=== PATIENT | female | born 1990 | race Caucasian/White ===

== ENCOUNTER 2024-01-01 13:04 | Emergency (ER) | payer BC ==
[2024-01-01] MEDS ORDERED: LIDOCAINE 1% 20 ML MDV ONE (13:53)
--- NOTE | 2024-01-01 14:04 | RAD REPORT ---
EXAM DESCRIPTION: US - Extremity Nonvascular Limited - 01/01/2024 1:39 pm CLINICAL HISTORY: abscess/cyst left inner thigh COMPARISON: No comparisons TECHNIQUE: Real-time sonographic evaluation of the area of interest was performed. FINDINGS: Subcutaneous irregular fluid collection is seen in the area of interest measuring approxim ately 1.8 x 1.5 x 1.6 cm. This is most compatible with subcutaneous abscess.
--- NOTE | 2024-01-01 14:54 | ER ---
Nurse's Notes [facility] Name: Amaury Schmidt Age: 33 yrs Sex: Female : 1990 Arrival Date: 01/01/2024 Time: 13:04 Bed 14 Private MD: Diagnosis: Cutaneous abscess of left lower limb Presentation: 12/31 13:21 Method Of Arrival: Ambulatory ll1 13:36 Initial Sepsis Screen: Does the patient meet any 2 criteria? No. Patient's initial iw sepsis screen is negative. Does the patient have a suspected source of infection? No. Patient's initial sepsis screen is negative. Risk Assessment: Do you want to hurt yourself or someone else? Patient reports no desire to harm self or others. 13:36 Acuity: NONI 3 iw 13:36 Coronavirus screen: At this time, the client does not indicate any symptoms associated iw with coronavirus-19. Ebola Screen: No symptoms or risks identified at this time. 13:48 Chief complaint: Patient states: possible abscess to left inner thigh X 2 days. iw 13:48 Onset of symptoms was January 01, 2024. 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 - Infectious Disease History:: Denies. - Social history:: Smoking status: Patient denies any tobacco usage or history of. Screenin:46 [facility] ED Fall Risk Assessment (Adult) History of falling in the last 3 months, mb9 including since admission No falls in past 3 months (0 pts) Confusion or Disorientation No (0 pts) Intoxicated or Sedated No (0 pts) Impaired Gait No (0 pts) Mobility Assist Device Used No (0 pt) Altered Elimination No (0 pt) Score/Fall Risk Level 0 - 2 = Low Risk Oriented to surroundings, Maintained a safe environment, Educated pt \T\ family on fall prevention, incl call for assistance when getting out of bed. Abuse screen: Denies threats or abuse. Nutritional screening: No deficits noted. Tuberculosis screening: No symptoms or risk factors identified. Assessment: 13:57 General: Appears in no apparent distress. Behavior is calm, cooperative. Pain: mb9 Complains of pain in medial aspect of left thigh. Neuro: Level of Consciousness is awake, alert, obeys commands, Oriented to person, place, time, situation, Appropriate for age. Cardiovascular: Patient's skin is warm and dry. Respiratory: Airway is patent Respiratory effort is even, unlabored, Respiratory pattern is regular, symmetrical. GI: No signs and/or symptoms were reported involving the gastrointestinal system. : No signs and/or symptoms were reported regarding the genitourinary system. EENT: No signs and/or symptoms were reported regarding the EENT system. Derm: Abscess located on medial aspect of left thigh. Musculoskeletal: Range of motion: intact in all extremities. Vital Signs: 13:21 BP 177 / 74; Pulse 81; Resp 16 S; Temp 98.5(O); Pulse Ox 98% ; iw 15:05 BP 144 / 74; Pulse 74; Resp 16; Pulse Ox 100% on R/A; manjeet ED Course: 13:06 Patient arrived in ED. mr 13:06 Rocio Huff PA-C is PHCP. sb4 13:06 Edison Herbert DO is Attending Physician. sb4 13:20 Arm band placed on. ll1 13:36 Triage completed. iw 13:41 US Extrmty Nonvasular Limited In Process Unspecified. EDMS 13:46 Tracey Patel, MARCELINO is Primary Nurse. mb9 13:46 Bed in low position. Call light in reach. Side rails up X 1. Provided Education on: manjeet press call light if needing anything. Client placed on continuous cardiac and pulse oximetry monitoring. NIBP monitoring applied. 15:06 Assist provider with I \T\ D: of an abscess on left Set up I\T\D tray. Performed by Rocio Huff PA-C Dressing with Patient tolerated well. Patient did not have IV access during this emergency room visit. Administered Medications: 14:57 Drug: Lidocaine Infiltration (1 %) 5 ml 5 ml Infiltration once; to bedside Volume: 5 sb4 ml; Route: Infiltration; Medication: 13:47 VIS not applicable for this client. manjeet Outcome: 14:53 Discharge ordered by . sb4 15:06 Discharged to home ambulatory, with family, mb9 15:06 Condition: stable 15:06 Discharge instructions given to patient, Instructed on discharge instructions, follow up and referral plans. Demonstrated understanding of instructions, follow-up care, medications, Prescriptions given X 1, 15:06 Patient left the ED. mb9 Signatures: Dispatcher [employer] EDMI Mika Tracey, Doroteo Doroteo Marta Lantigua, RN RN Benito Guerrero RN RN ll1 Rocio Huff PA-C PATracey Gray, RN RN mb9 Corrections: (The following items were deleted from the chart) 13:35 13:21 BP 177 / 74; Pulse 81bpm; Pulse Ox 98%; ll1 el
--- NOTE | 2024-01-01 14:54 | EDPHYS ---
Physician Documentation [facility] Name: Amaury Schmidt Age: 33 yrs Sex: Female : 1990 Arrival Date: 01/01/2024 Time: 13:04 Bed 14 Private MD: ED Physician Edison Herbert HPI: 12/31 13:24 This 33 yrs old Female presents to ER via Ambulatory with complaints of Bump on leg. sb4 13:24 the patient presents with a swollen area of the medial aspect of left thigh. sb4 Description: The affected area is moderate sized, localized. Onset: The symptoms/episode began/occurred at an unknown time. and became worse 2 day(s) ago. Possible cause(s): unknown. Associated signs and symptoms: The patient has no apparent associated signs or symptoms. The patient has not experienced similar symptoms in the past. 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 - Infectious Disease History:: Denies. - Social history:: Smoking status: Patient denies any tobacco usage or history of. ROS: 13:24 Constitutional: Negative for fever, chills, and weight loss, sb4 13:24 Skin: Positive for swelling, of the medial aspect of left thigh, Exam: 13:24 Constitutional: This is a well developed, well nourished patient who is awake, alert, sb4 and in no acute distress. Head/Face: Normocephalic, atraumatic. Eyes: Extra-ocular motions intact. Periorbital areas with no swelling, redness, or edema. ENT: Mucous membranes moist. 13:24 Skin: abscess, that is moderate sized, of the medial aspect of left thigh, Vital Signs: 13:21 BP 177 / 74; Pulse 81; Resp 16 S; Temp 98.5(O); Pulse Ox 98% ; iw 15:05 BP 144 / 74; Pulse 74; Resp 16; Pulse Ox 100% on R/A; mb9 Procedures: 14:52 I \T\ D: Incision and drainage was performed for an abscess of the left medial aspect of sb4 left thigh Prepped with Betadine, Anesthetized with 2 ml's 1% Lidocaine. Incised with #11 blade. Drained moderate amount purulent fluid. bloody fluid. the patient tolerated the procedure well. MDM: 13:15 Patient medically screened. sb4 14:52 Data reviewed: vital signs, nurses notes, and as a result, I will discharge patient. sb4 Counseling: I had a detailed discussion with the patient and/or guardian regarding the historical points, exam findings, and any diagnostic results supporting the discharge/admit diagnosis, radiology results, to return to the emergency department if symptoms worsen or persist or if there are any questions or concerns that arise at home. 12/31 13:24 Order name: US Donatomtruss Nonvasular Limited sb4 Administered Medications: 14:57 Drug: Lidocaine Infiltration (1 %) 5 ml 5 ml Infiltration once; to bedside Volume: 5 sb4 ml; Route: Infiltration; Disposition: 13:59 I was immediately available on-site in the Emergency Department for consultation in the ms3 care of the patient. Disposition Summary: 01/01/24 14:53 Discharge Ordered Notes: Location: Home sb4 Problem: new sb4 Symptoms: have improved sb4 Condition: Stable sb4 Diagnosis - Cutaneous abscess of left lower limb sb4 Followup: sb4 - With: Emergency Department - When: As needed - Reason: Fever > 102 F, Worsening of condition Discharge Instructions: - Discharge Summary Sheet sb4 - Skin Abscess, [id number] sb4 - Incision and Drainage, Care After sb4 Forms: - Antibiotic Education sb4 - Patient Portal Instructions sb4 - Leadership Thank You Letter sb4 Prescriptions: - Bactrim DS 800-160 mg Oral Tablet - take 1 tablet ORAL route every 12 hours for 7 days; 14 tablet; Refills: 0, sb4 Product Selection Permitted Signatures: Dispatcher [employer] EDMS Edison Herbert DO DO ms3 Rocio Huff PA-C PA-C sb4 Tracey Patel RN RN mb9
[2024-01-01 15:16] VITALS: TEMP 98.5
[2024-01-01 15:17] VITALS: BP 144/74; O2SAT 100
== END 2024-01-01 15:06 | disposition home or self-care (01) ==
LOC: ER 13:04
PROC: 0H9LXZZ Drainage of Left Lower Leg Skin, External Approach (ICD-10-PCS; principal; 2024-01-01)
DX: L02.416 Cutaneous abscess of left lower limb (principal)
CPT/HCPCS: 76882; 10060; J2001